=== PATIENT | male | born 1970 | race Two or more races ===

== ENCOUNTER 2024-04-27 09:05 | Emergency (ER) | payer OTHER ==
[~2024-04-27] VITALS: Ht 172.7 cm; Wt 99.8 kg
[2024-04-27] MEDS ORDERED: CIPRO500 MG PO (09:47)
[2024-04-27] MEDS ORDERED: MONTELUKAST SODI4 M1 PO (09:47)
[2024-04-27] MEDS ORDERED: DICY20TA PO (09:47)
[2024-04-27] MEDS ORDERED: METRONIDAZOLE500 MG PO (09:47)
[2024-04-27] MEDS ORDERED: SURFAK240 M1 PO (09:47)
[2024-04-27] MEDS ORDERED: PEPCID AC20 MG PO (09:47)
== END 2024-04-27 10:20 | disposition home or self-care (01) ==
LOC: ER 09:07
DX: K57.90 Diverticulosis of intestine, part unspecified, without perforation or abscess without bleeding (principal); R10.9 Unspecified abdominal pain; I10 Essential (primary) hypertension

== ENCOUNTER 2024-07-10 10:26 | Emergency (ER) | payer OTHER ==
[~2024-07-10] VITALS: Ht 180.3 cm; Wt 101.2 kg
[~2024-07-10 10:26] MED LIST: CIPRO500 MG PO; DICY20TA PO; METRONIDAZOLE500 MG PO; MONTELUKAST SODI4 M1 PO; PEPCID AC20 MG PO; SURFAK240 M1 PO
[2024-07-10] MEDS ORDERED: IRBESARTAN-HCT1 EAC1 PO (10:46)
[2024-07-10] MEDS ORDERED: BARIUM SULFATE 450 ML ORAL.SUSP PO ONE (11:12)
[2024-07-10 11:34] LABS: HEMATOCRIT 41.9 % (39.0-48.0); HEMOGLOBIN 13.8 g/dL (13-16.00); MEAN CELL VOLUME 89.3 fL (80.0-100.00); MEAN CORPUSCULAR HEMOGLOBIN 29.5 pg (27.00-32.0); MEAN CORPUSCULAR HGB CONC 33.1 g/dl (32.0-36.0); PLATELET COUNT 268 K/uL (150-450); RED BLOOD COUNT 4.69 M/uL (4.00-6.00); RED CELL DISTRIBUTION WIDTH 13.8 % (11.5-14.5)
[2024-07-10 11:55] LABS: PH,URINE 6.5 (5.0-8.0); URINE APPEARANCE Clear; URINE BILIRRUBIN Negative (NEGATIVE); URINE BLOOD Negative; URINE COLOR Yellow; URINE GLUCOSE Negative (NEGATIVE); URINE KETONE Negative (NEGATIVE); URINE LEUKOCYTE Negative; URINE NITRATE Negative; URINE PROTEIN Negative (NEGATIVE); URINE UROBILINOGEN 0.2 E.U./dl
[2024-07-10 11:56] LABS: URINE BACTERIA 7.3 uL (0.0-1933); URINE RBC 2.2 uL (0.0-20.8); URINE WBC 4.7 uL (0.0-23.2)
[2024-07-10 11:59] LABS: CREATININE SERUM 0.85 mg/dL (0.70-1.30); GFR 94.29; POTASSIUM 4.13 mEq/L (3.5-5.1)
[2024-07-10 12:26] LABS: URINE CAST 0.14 uL (0.0-1.40); URINE EPITHELIAL CELLS 0.7 uL (0.0-38.8)
== END 2024-07-10 15:09 | disposition home or self-care (01) ==
LOC: ER 10:29
PROVIDERS: Emergency Medicine
DX: K57.30 Diverticulosis of large intestine without perforation or abscess without bleeding (principal); I10 Essential (primary) hypertension